=== PATIENT | male | born 1990 | race Caucasian/White ===

== ENCOUNTER 2016-05-04 15:22 | Emergency (ER) | payer OTHER ==
[~2016-05-04] VITALS: Ht 167.6 cm; Wt 74.4 kg
[~2016-05-04 15:22] MED LIST: BACTRIM,SEPT1 TABLET PO; FIORICET 50-301 EACH PO; OXAYDO5 MG PO; OXYCODONE-ACET1 EACH PO; PERCOCET 5/31 TABLET PO; ULTRAM50 MG PO
[2016-05-04 16:50] LABS: HEMATOCRIT 41.9 % (38.0-50.0); MCH 29.8 PG (29.0-34.0); MCHC 35.3 G/DL (30.0-36.0); MCV 84.3 FL (86-99); MEAN PLAT.VOLUME 10.3 uM^3 (9.0-12.4); PLATELET COUNT 256 K/uL (156-360); RBC DIS.WIDTH-CV 12.9 % (11.8-14.6); RBC DIS.WIDTH-SD 39.7 % (39-53); RED BLOOD COUNT 4.97 M/uL (4.00-5.50); WHITE BLOOD COUNT 6.6 K/uL (4.1-10.2)
[2016-05-04 17:11] LABS: ANION GAP 11 MEQ/L (2-14); CHLORIDE 102 MEQ/L (99-109); POTASSIUM 3.7 MEQ/L (3.7-5.4); SAMPLE HEMOLYSIS CHECK 0; SAMPLE ICTERIC CHECK 0; SAMPLE LIPEMIA CHECK 0; SODIUM 139 MEQ/L (136-147)
[2016-05-04 17:16] LABS: GFR ESTIMATE (CALCULATED) > 59 mL/min/; GLUCOSE 129 mg/dL (70-99); UREA NITROGEN (BUN) 11 mg/dL (9-23)
[2016-05-04] MEDS ORDERED: PERCOCET 5/31 TABLET PO (18:13)
[2016-05-04 18:22] VITALS: BP 133/60
== END 2016-05-04 18:22 | disposition home or self-care (01) ==
LOC: EME 15:22
PROVIDERS: Physician Assistant
DX: R51 Headache (principal); R04.0 Epistaxis; Z98.2 Presence of cerebrospinal fluid drainage device; Z88.7 Allergy status to serum and vaccine
CPT/HCPCS: 70250; 70450; 71010; 72040; 80048; 85027; 99281; 99284

== ENCOUNTER 2016-06-13 19:20 | Emergency (ER) | payer OTHER ==
[~2016-06-13] VITALS: Ht 167.6 cm; Wt 75.2 kg
[2016-06-13 21:35] VITALS: BP 122/67
== END 2016-06-13 21:35 | disposition home or self-care (01) ==
LOC: EME 19:20
DX: R51 Headache (principal); Z98.2 Presence of cerebrospinal fluid drainage device
CPT/HCPCS: 70450; 99281; 99284

== ENCOUNTER 2017-05-22 09:14 | Emergency (ER) | payer OTHER ==
[~2017-05-22] VITALS: Ht 167.6 cm; Wt 76.3 kg
[2017-05-22 12:15] VITALS: BP 122/79
== END 2017-05-22 12:15 | disposition home or self-care (01) ==
LOC: EME 09:14
DX: R51 Headache (principal); Z98.2 Presence of cerebrospinal fluid drainage device; Z86.69 Personal history of other diseases of the nervous system and sense organs; Z88.7 Allergy status to serum and vaccine
CPT/HCPCS: 70450; 99281; 99284